=== PATIENT | female | born 1960 | race Caucasian/White ===

== ENCOUNTER → 2016-12-11 | Outpatient (CLI) | payer OTHER ==
[~2016-12-11] MED LIST: ALBU2.5V3 NEB; APR50 GTB; ASCO500C7 GTB; BISA10SU58 PR; CHLO15MO MM; CRAN3875 GTB; FERR220S13 GTB; FURO20TA3 GTB; HEP30MU30 IJ; HYDR-3498 GTB; LACTINEX GTB; LANT3I SC; MAGN400O4 PO; METF-382 GTB; METO-429 GTB; MULT9LIQ4 GTB; NA P118E PR; OMEP20CA16 GTB; UDTYL GTB
--- NOTE | 2016-12-19 15:13 | SP ---
DATE OF PROCEDURE: 12/11/2016 EEG REPORT INDICATION: A 56-year-old lady with a history of CVA, with hemicraniotomy on the right side. DESCRIPTION OF PROCEDURE: Routine EEG was recorded digitally. Deopq-zu-[id number] and qkgpt-zq-kpy tez ages were recorded and reviewed. All impedances were measured and recorded. Cap electrodes were pl aced in accordance with the International 10-20 system of electrode placement. FINDINGS: Symmetrically distributed background activity of medium amplitude, ranging in frequency b etween 4 to 6 cycles per second, was seen throughout the recording. No response to photic stimulatio n. No epileptiform transients were seen. No signs of ongoing electrographic seizures or lateralize d slowing. IMPRESSION: Abnormal study secondary to background slowing, which could reflect encephalopathy. Pl ease correlate clinically. Findings are nonspecific and frequently seen in the context of toxic met abolic-type of encephalopathy. Dictated By: DOMENICO TOTH/JALEN Conf#: [id number] DID#: [id number]
== END | disposition home or self-care (01) ==
LOC: EEG 10:04
PROVIDERS: ATTEND Internal Medicine Pulmonary Disease
DX: R56.9 Unspecified convulsions (principal)
CPT/HCPCS: 95819

== ENCOUNTER → 2016-12-26 | Outpatient (CLI) | payer OTHER ==
--- NOTE | 2016-12-27 15:38 | RADRPT ---
PROCEDURE: CT abdomen and pelvis without contrast. CLINICAL INDICATION: Cutaneous abscess TECHNIQUE: CT scan of the abdomen and pelvis without contrast was performed and is reconstructed a t 2.5 mm contiguous axial intervals from the dome of the diaphragm to the inferior pubic rami.. The patient was scanned without intravenous contrast. Sagittal and coronal reformatted images were obt ained from the axial source images. The calculated radiation dose measures 1531 mGy centimeters. The CTDI measures 20 mGy. COMPARISON: CT abdomen September 11, [address] abdomen pelvis July 11, 2016 FINDINGS: The lung bases are clear of any infiltrate or nodule. No effusion is seen. There are coronary arter y calcifications. The liver is of normal size, contour and attenuation with no mass or ductal dilatation. There are ga llstones. No splenic, adrenal or pancreatic abnormalities present. Kidneys are of normal size and contour. No hydronephrosis, calculus or masses seen. Ureters are o f normal course and caliber with no stone. No bladder mass or stone is present. Atrophic postmenopa usal uterus is normal. No adnexal mass is seen. There is no aneurysm. No adenopathy is present. No bowel mass or obstruction is present. Percutaneous gastrostomy tube is seen in the lumen of the stomach. Multiple calcified appendicoliths are seen in a non-inflamed appendix.. No phlegmon, asc ites or pneumoperitoneum is visualized. Noted is 17 mm dye stasis of the pubic symphysis. There is a focal fluid collection is again seen e xtending from the pubic symphysis anteriorly which measures approximately 2.7 cm in diameter. This has diminished significantly in size when compared with the prior study from July 05, 2016. There is phlegmonous infiltration of the surrounding subcutaneous fat. There is an apparent sinus tract extending to the right anterior pelvic wall. There is no evidence of communication with the periton eal cavity. IMPRESSION: Interval diminished size collection involving the pubic symphysis but compared with prior study. Pr obable draining sinus tract to the right anterior pelvic wall. Contrast could be injected into the tract for more definitive diagnosis. Diastases pubic symphysis. Cholelithiasis. Calcified appendicoliths. Vascular calcifications. .Faheem Kaplan MD, Date Time Electronically viewed and signed by .Faheem Kaplan MD, MD on 12/27/2016 15:38 .A/
== END | disposition home or self-care (01) ==
LOC: C/S 14:00
PROVIDERS: ATTEND Transplant Surgery
DX: L02.211 Cutaneous abscess of abdominal wall (principal)
CPT/HCPCS: 74176

== ENCOUNTER 2017-11-25 16:33 | Inpatient (IN) | END 2017-12-09 17:15 | DRG 871 ==